=== PATIENT | male | born 1975 | race Caucasian/White ===

== ENCOUNTER → 2022-03-25 | Outpatient (CLI) | payer MEDICAID ==
--- NOTE | 2022-03-25 18:29 | CONS ---
CONSULTATION DATE OF SERVICE: 03/25/2022 This 46-year-old gentleman has been evaluated [facility] for possible obstructive sleep apnea-hypopnea syndrome. HISTORY OF PRESENT ILLNESS/SLEEP-WAKE EVALUATION: Patient's usual sleep schedule on weekdays is from 7:30 a.m. until 2 p.m. 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 On weekends he sleeps from 9 p.m. until 5 a.m. Usually no problems with falling asleep, although he has a TV set in the bedroom. He usually sleeps on the side position. He wakes up from sleep 2 times with nocturia. He snores and has positive history of restless leg symptoms and movements of the legs at night. No history of hypnagogic hallucinations, sleep paralysis or cataplexy. In the morning the patient wakes up tired, falling asleep during the day. He has episodes of irritability and depression. [place] Sleepiness Scale is significantly increased at 18. PAST MEDICAL HISTORY: Positive for hypertension, hyperlipidemia, sinus problems. PAST SURGICAL HISTORY: [place] tooth removed. SOCIAL HISTORY: Positive for smoking about 6 cigarettes a day for 4 years; quit about 6 years ago. Alcohol consumption occasional. FAMILY HISTORY: Cancer, headaches. REVIEW OF SYSTEMS: Snoring, awakenings from sleep, tiredness and sleepiness during the day. No fevers. No double vision. No recent chest pain. No shortness of breath. No abdominal pain. No bleeding episodes. No blood in the urine. No seizure episodes. PHYSICAL EXAMINATION: GENERAL: Pleasant gentleman without distress. VITAL SIGNS: BP 120/78, HR 77, RR 20, height 6 feet 2 inches, weight 329.8 pounds, temperature 97.2, oxygen saturation at room air 96%. HEENT: PERRLA, EOMI, evaluation of oropharynx showed tongue protrudes midline. Extremely low position of soft palate; Mallampati IV. NECK: Supple, no JVD. Thyroid is not palpable. Neck is wide; 20 inches in circumference. LUNGS: Clear to percussion and to auscultation. Good air exchange. No wheezing or rhonchi. HEART: S1, S2 regular. No murmurs, gallops, or rubs. ABDOMEN: Obese. EXTREMITIES: No clubbing or cyanosis. HOUSEKEEPING AID: Awake, alert, and oriented X3. Cranial nerves 2 to 7 intact. There is no fasciculation or atrophy. noted. No focal deficits observed. IMPRESSION: 1. Snoring, multiple awakenings from sleep with nocturia, extremely low position of soft palate, Mallampati IV, wide neck, 20 inches in circumference, sleepiness, [place] Sleepiness Scale is 18; obstructive sleep apnea-hypopnea syndrome. 2. Obesity; body mass index 42.2. 3. Hypertension. 4. Restless leg symptoms. 5. Sinus problems. 6. Hyperlipidemia. PLAN: 1. Polysomnography for evaluation of patient's breathing during sleep. 2. CPAP/BiPAP titration if sleep study confirms obstructive sleep apnea-hypopnea syndrome. 3. Preferable position during sleep on the side. 4. No driving if patient feels any sleepiness. 5. I will see patient for follow up visit to explain results of testing and following plan. 1. Please check iron profile, including ferritin level. Low level of iron may increase risk for periodic limb movements. Thank you very much for referring this patient for consultation. Sincerely, Gianluca Nascimento MD, PhD, FAASM Diplomat of [employer] Sleep Medicine Board of [place] [employer] [facility] [place] MMODL / IJN: [id number] /
== END | disposition home or self-care (01) ==
LOC: SLEEP 15:53
PROVIDERS: ATTEND Internal Medicine
DX: G47.33 Obstructive sleep apnea (adult) (pediatric) (principal); E66.9 Obesity, unspecified; I10 Essential (primary) hypertension; G25.81 Restless legs syndrome; E78.5 Hyperlipidemia, unspecified; Z68.41 Body mass index [BMI] 40.0-44.9, adult
CPT/HCPCS: 99211

== ENCOUNTER 2023-12-02 11:19 | Day surgery (SDC) | payer MEDICAID ==
[2023-11-30 15:44] VITALS: BMI 39.8
[2023-12-02] MEDS: LACTATED RINGERS 1,000 ML IV SCH (12:14)
[2023-12-02 12:37] VITALS: TEMP 97
[2023-12-02] MEDS ORDERED: fentaNYL (PF) 50 MCG/ML 2 ML AMP ONE (13:15)
[2023-12-02] MEDS ORDERED: PROPOFOL 10 MG/ML 20 ML VIAL IV ONE (13:15)
[2023-12-02] MEDS ORDERED: LIDOCAINE 1% INJ 10MG/ML (20 ML MDV) ONE (13:15)
[2023-12-02] MEDS ORDERED: MIDAZOLAM 2 MG/2 ML VIAL ONE (13:15)
--- NOTE | 2023-12-02 13:37 | P.PCN ---
Date of Procedure: 12/02/23 Procedure(s) Performed: BRIEF HISTORY: Patient is a 48-year-old pleasant male scheduled for an elective colonoscopy as a part of screening for colon cancer. PROCEDURE PERFORMED: Colonoscopy with biopsy. PREOPERATIVE DIAGNOSIS: Screening for colon cancer. IV sedation per Anesthesia. PROCEDURE: After informed consent was obtained, the patient, was brought into the endoscopy unit. IV sedation was administered by Anesthesia under continuous monitoring. Digital rectal examination was normal. Initially the Olympus CF-160 flexible video colonoscope was then inserted in the rectum, gradually advanced into the cecum without any difficulty. Careful examination was performed as the scope was gradually being withdrawn. Ileocecal valve and the appendiceal orifice were visualized and appeared normal. Prep was excellent. Mucosa of the cecum, ascending colon, transverse colon, descending colon appeared normal. The sigmoid there was a 4 mm polyp that was removed by cold biopsy. Rest of the, sigmoid colon, and rectum appeared normal. Retroflexion was performed in the rectum and no lesions were seen. The patient tolerated the procedure well. IMPRESSION: 4 mm sigmoid polyp status post cold biopsy Rest of the colon appeared normal RECOMMENDATIONS: Findings of this examination were discussed with the patient as well as his family. He was advised to follow with the biopsy results. If the biopsy results adenoma he can have a repeat coloscopy in 5 years.
[2023-12-02 14:06] VITALS: BP 118/76; PULSE 72; RESP 16
== END 2023-12-02 14:14 | disposition home or self-care (01) ==
LOC: ORWHC2ENDO 11:19
PROVIDERS: ATTEND Internal Medicine Gastroenterology
DX: Z12.11 Encounter for screening for malignant neoplasm of colon (principal); D12.5 Benign neoplasm of sigmoid colon; I10 Essential (primary) hypertension; G47.33 Obstructive sleep apnea (adult) (pediatric); E66.9 Obesity, unspecified; Z68.43 Body mass index [BMI] 50.0-59.9, adult; Z79.899 Other long term (current) drug therapy
CPT/HCPCS: 45380; 88305; J2250; J2001; J3010; J2704

== ENCOUNTER → 2024-07-10 | Outpatient (CLI) | payer MEDICAID ==
[2024-07-11 02:24] LABS: Basophils # (A) 0.04 X 10*3/uL (0.00-0.10); Basophils % (A) 0.4 %; HCT 50.5 % (39.6-50.0); HGB 16.7 g/dL (13.0-17.0); Lymphocytes # (A) 2.42 X 10*3/uL (0.90-5.00); Lymphocytes % (A) 25.1 %; MCH 29.9 pg (27.0-32.0); MCHC 33.1 g/dL (32.0-37.0); MCV 90.3 FL (80.0-97.0); Mean Platelet Volume 10.3 FL (9.5-12.2); Monocytes # (A) 0.66 X 10*3/uL (0.20-1.00); Monocytes % (A) 6.8 %; NRBC Per 100 WBC 0 X 10*3/uL (0.00-0.01); Neutrophils # (A) 6.42 X 10*3/uL (1.80-7.70); Neutrophils % (A) 66.5 %; Platelet Count 258 X 10*3/uL (140-440); RBC 5.59 X 10*6/uL (4.40-5.60); RDW 12.6 % (11.5-14.5); WBC 9.66 X 10*3/uL (4.50-10.00)
[2024-07-11 02:32] LABS: Appearance,Urine Clear (Clear); Bilirubin,Urine Negative (Negative); Blood,Urine Negative (Negative); Color,Urine Yellow (Yellow); Ketones,Urine Negative (Negative); Nitrite,Urine Negative (Negative); Specific Gravity,Urine 1.015 (1.001-1.030); Urobilinogen,Urine 0.2 E.U./DL
[2024-07-11 02:42] LABS: Blood Urea Nitrogen 8.5 mg/dL (9.0-27.0); Calcium 9.4 mg/dL (8.7-10.3); Carbon Dioxide 24.3 mmol/L (21.6-31.8); Chloride 104 mmol/L (96-109); Glucose 115 mg/dL (70-110); Potassium 4.4 mmol/L (3.5-5.5); Sodium 140 mmol/L (135-145)
== END | disposition home or self-care (01) ==
LOC: LABPAT 15:21
PROVIDERS: ATTEND Urology
DX: Z01.812 Encounter for preprocedural laboratory examination (principal); N20.0 Calculus of kidney
CPT/HCPCS: 80048; 81003; 85025; 87077; 87086; 87186

== ENCOUNTER 2024-07-19 05:50 | Day surgery (SDC) | payer MEDICAID ==
--- NOTE | 2024-07-18 21:18 | P.HPIHPCON ---
History of Present Illness H&P Date: 07/18/24 Chief Complaint: Right renal stone This is a 49-year-old male with history of a 6 mm left-sided ureteral stone which has passed spontaneously, of note CT also showed evidence of an additional 5 mm left renal stone and a 13 mm right-sided renal stone. Reviewed the images with him in details, discussed the chance of right sided stone passage is very unlikely given the size. Option of observation versus ureteroscopy versus ESWL was discussed with him in detail. Risk benefit of each approach were discussed. He agreed to proceed with a right-sided ureteroscopy with holmium laser, aware of the risk which includes but not limited to bleeding, infection, injury to the ureter Consent for Procedure: I have explained the operation/procedure to the patient, including the risks, benefits, side effects, alternative therapies (including not receiving the proposed treatment or service), the likelihood of the patient achieving his/her goals, and potential recuperation problems for the procedure/sedation/analgesia, as well as any blood products, if indicated. I also explained to the patient the risks, benefits and side effects of the alternatives, as well as the risks related to not receiving the proposed procedure, care, treatment, or services. Past Medical History Past Medical History: Hyperlipidemia, Hypertension, Sleep Apnea/CPAP/BIPAP Additional Past Medical History / Comment(s): kidney stones, supposed to use CPAP History of Any Multi-Drug Resistant Organisms: None Reported Past Surgical History: No Surgical Hx Reported Additional Past Surgical History / Comment(s): WISDOM TEETH REMOVED, colonoscopy Past Anesthesia/Blood Transfusion Reactions: No Reported Reaction Smoking Status: Former smoker - Past Family History Mother Family Medical History: No Reported History Medications and Allergies Home Medications Medication Instructions Recorded Confirmed Type Atorvastatin [Lipitor] 10 mg PO DAILY 11/30/23 07/13/24 History Cholecalciferol [Vitamin D3 (125 125 mcg PO DAILY 11/30/23 07/13/24 History Mcg = 5000 Iu)] Losartan Potassium 100 mg PO DAILY 11/30/23 07/13/24 History Allergies Allergy/AdvReac Type Severity Reaction Status Date / Time No Known Allergies Allergy Verified 07/13/24 08:22 Surgical - Exam - General no distress, moderate pain - Eyes normal ocular movement, no pale - ENT normal nares, normal mucosa - Respiratory normal expansion, normal respiratory effort Assessment and Plan Assessment: OR for right-sided ureteroscopy, with holmium laser lithotripsy, stone basketing and stent insertion
[2024-07-19] MEDS ORDERED: LIDOCAINE 1% (10MG/ML) FOR IV START INTRADERMA PRN (06:30)
[2024-07-19] MEDS ORDERED: fentaNYL (PF) 50 MCG/ML 2 ML AMP IVP PRN (06:30)
[2024-07-19] MEDS ORDERED: HYDROmorphone 0.5 MG/0.5 ML SYRINGE IVP PRN (06:30)
[2024-07-19] MEDS ORDERED: MIDAZOLAM 2 MG/2 ML VIAL IV PRN (06:30)
[2024-07-19] MEDS: ONDANSETRON 4 MG/2 ML VIAL IVP ONE (07:03)
[2024-07-19] MEDS: LACTATED RINGERS 1,000 ML IV SCH (07:03)
[2024-07-19] MEDS: DEXAMETHASONE SOD PHOSPHATE 4 MG/ML 1 ML VIAL IV ONE (07:03)
[2024-07-19] MEDS: IV FLUID CONTINUATION 1,000 ML IV ONE (07:04)
--- NOTE | 2024-07-19 07:11 | XR ---
EXAMINATION TYPE: XR KUB DATE OF EXAM: 07/19/2024 COMPARISON: 07/19/2024 INDICATION: Renal stones TECHNIQUE: Single view abdomen FINDINGS: There is a normal bowel gas pattern. Psoas margins are normal. No organomegaly is present. There is a 1.6 cm calcification inferior pole right kidney. There is a 0.7 cm calcification IMPRESSION: 1. Bilateral inferior pole renal calcifications. [facility], , 07/19/2024 7:09 AM
[2024-07-19] MEDS ORDERED: LIDOCAINE 1% INJ 10MG/ML (20 ML MDV) ONE (07:24)
[2024-07-19] MEDS ORDERED: SUCCINYLCHOLINE CHLORIDE 200 MG/10 ML VIAL IV ONE (07:24)
[2024-07-19] MEDS ORDERED: HYDROmorphone (PF) 1 MG/ML ONE (07:24)
[2024-07-19] MEDS ORDERED: fentaNYL (PF) 50 MCG/ML 2 ML AMP ONE (07:24)
[2024-07-19] MEDS ORDERED: MIDAZOLAM 2 MG/2 ML VIAL ONE (07:24)
[2024-07-19] MEDS ORDERED: PROPOFOL 10 MG/ML 20 ML VIAL IV ONE (07:24)
[2024-07-19] MEDS: ceFAZolin 3 GM in SODIUM CHLORIDE 0.9% 100 ML IVPB PRN (07:27)
[2024-07-19] MEDS: LACTATED RINGERS 1,000 ML IV ONE (08:39)
--- NOTE | 2024-07-19 08:41 | FL ---
EXAMINATION TYPE: FL guidance operating room DATE OF EXAM: 07/19/2024 HISTORY: Fluoroscopy time Total dose area product (DAP) in uGy*m?, mGy*cm? (or similar): 12.986 IMPRESSION: 1. Fluoroscopy time. [facility], , 07/19/2024 8:38 AM
[2024-07-19 08:47] VITALS: TEMP 97.1
--- NOTE | 2024-07-19 08:58 | P.OP ---
Date of Procedure: 07/19/24 Preoperative Diagnosis: Right renal stone Postoperative Diagnosis: Same Procedure(s) Performed: Cystoscopy, right ureteroscopy, holmium laser lithotripsy, stone basketing and stent insertion Implants: 6 Swedish by 26 cm stent in the right ureter Anesthesia: ROXIE Surgeon: Chaka Collins Estimated Blood Loss (ml): 5 Pathology: other (Right renal stone) Condition: stable Disposition: PACU Indications for Procedure: This is a 49-year-old male with history of a 6 mm left-sided ureteral stone which has passed spontaneously, of note CT also showed evidence of an additional 5 mm left renal stone and a 13 mm right-sided renal stone. Reviewed the images with him in details, discussed the chance of right sided stone passage is very unlikely given the size. Option of observation versus ureteroscopy versus ESWL was discussed with him in detail. Risk benefit of each approach were discussed. He agreed to proceed with a right-sided ureteroscopy with holmium laser, aware of the risk which includes but not limited to bleeding, infection, injury to the ureter Operative Findings: Large right-sided lower pole stone Description of Procedure: Patient brought to the operating room, general anesthesia was induced. He was prepped and draped in sterile fashion placed in dorsolithotomy position. Cystoscopy fitted with a 21 Swedish sheath was inserted per urethra, cystoscopy was performed which showed no abnormality within the bladder. Of note the prostate was slightly enlarged with slight intravesical extension. The right ureteral orifice was visualized and intubated with a sensor wire, the wire was advanced under fluoroscopy into the kidney. Next under fluoroscopy and 1113 Swedish access sheath was passed over the wire into the proximal ureter. Next a flexible ureteroscope was inserted through the access sheath, renoscopy was performed which showed a large stone in the lower pole. Using the holmium laser the stone was fragmented, stone fragments were removed using the stone basket. Repeat renoscopy showed no sizable fragments or injury to the kidney, on fluoroscopy there was no radiopaque densities. Pullback ureteroscopy was performed showed no injury to the ureter or any ureteral stones, as ureteroscope was withdrawn a sensor wire was advanced through. Next a ureteral stent was passed over the wire, the proximal curl was visualized on fluoroscopy and the distal curl was visualized using the cystoscope. The bladder was emptied at the end of the case. The stent was left on a string and taped to the patient penis. Patient tolerated patient was taken to recovery in stable condition
[2024-07-19] MEDS: KETOROLAC 15 MG/ML 1 ML VIAL IM STA (09:51)
[2024-07-19 09:54] VITALS: RESP 16
[2024-07-19] MEDS: MAGNESIUM OXIDE 400 MG TAB PO STA (10:22)
[2024-07-19 10:48] VITALS: BP 137/77; PULSE 67
== END 2024-07-19 10:15 | disposition home or self-care (01) ==
LOC: OR 05:50
PROVIDERS: ATTEND Urology
DX: N20.0 Calculus of kidney
CPT/HCPCS: 74018; 82365

== ENCOUNTER → 2024-09-14 | Outpatient (CLI) | payer MEDICAID ==
--- NOTE | 2024-09-16 02:55 | CT ---
EXAMINATION TYPE: CT abdomen pelvis wo con CT DLP: 1367 mGycm, Automated exposure control for dose reduction was used. DATE OF EXAM: 09/14/2024 4:12 PM COMPARISON: CT abdomen pelvis 07/05/2024, KUB radiograph 07/19/2024 CLINICAL INDICATION:Male, 49 years old with history of N20.0 CALCULUS OF KIDNEY; Bilateral flank pain . Hx of renal stones. TECHNIQUE: Standard CT of the abdomen and pelvis without IV or oral contrast. Lack of IV or oral co ntrast limits evaluation of solid and hollow organ viscera. Coronal and sagittal reformats were perfo rmed. FINDINGS: LOWER CHEST: The visualized lung bases are clear. ABDOMEN LIVER: Diffusely hypoattenuating parenchyma. Mildly enlarged measuring 17.7 cm in CC dimension. GALLBLADDER AND BILE DUCTS: Unremarkable noncontrast appearance PANCREAS: Unremarkable noncontrast appearance SPLEEN: Unremarkable noncontrast appearance ADRENAL GLANDS: Unremarkable noncontrast appearance. KIDNEYS AND URETERS: No evidence of hydronephrosis. Decrease in right renal calculi with residual 5 m m nonobstructive calculus within the lower pole of the right kidney. Stable 6 mm nonobstructive calcu salvador within the lower pole of the left kidney. No ureteral calculi. Right renal sinus cyst measuring t o 1.7 cm. No perinephric fluid collections. Similar perinephric fat stranding from prior exam. PELVIS BLADDER: Unremarkable noncontrast appearance. No calculi. REPRODUCTIVE: Coarse calcifications of the prostate gland are identified. Mildly enlarged prostate gl and measuring 4.9 cm in transverse dimension. ABDOMEN & PELVIS STOMACH AND BOWEL: Stomach and duodenum are unremarkable. Distal colonic diverticulosis without evide nce for acute diverticulitis. The appendix is within normal limits. No wall thickening or surrounding inflammatory changes of the bowel. No evidence of bowel obstruction. PERITONEUM: No evidence of pneumoperitoneum or free fluid. VASCULATURE: No evidence of aortic aneurysm. Stable pelvic phleboliths. MUSCULOSKELETAL: No acute osseous abnormalities. Grade 1 anterolisthesis of L5 on S1 with bilateral p ars defects. LYMPH NODES: No gross evidence for lymphadenopathy. SOFT TISSUE/ABDOMINAL WALL: Unremarkable IMPRESSION: 1. No evidence for obstructive uropathy. 2. Decreased right renal calculi with residual right lower pole 5 mm calculus. Stable nonobstructive left renal 6 mm calculus. No ureteral calculi identified. 3. Colonic diverticulosis without evidence for acute diverticulitis. 4. Grade 1 anterolisthesis of L5 on S1 with bilateral pars defects. 5. Hepatic steatosis with mild hepatomegaly. 6. Prostatomegaly. [facility], , 09/16/2024 2:52 AM
== END | disposition home or self-care (01) ==
LOC: RADCTMAIN 15:52
PROVIDERS: ATTEND Internal Medicine
DX: N20.0 Calculus of kidney (principal); K57.30 Diverticulosis of large intestine without perforation or abscess without bleeding; M43.17 Spondylolisthesis, lumbosacral region; N40.0 Benign prostatic hyperplasia without lower urinary tract symptoms; K76.89 Other specified diseases of liver; R16.0 Hepatomegaly, not elsewhere classified; Z87.442 Personal history of urinary calculi
CPT/HCPCS: 74176